=== PATIENT | male | born 1945 | race Caucasian/White ===

== ENCOUNTER 2022-09-18 22:28 | Emergency (ER) | payer MEDICARE ==
[2022-09-18] MEDS ORDERED: Ondansetron PF 4 MG/2 ML Vial ONE (23:11)
[2022-09-18] MEDS ORDERED: Aspirin Chewable 81 MG TAB ONE (23:11)
[2022-09-18] MEDS ORDERED: Nitroglycerin 0.4 MG TAB (25 Tab Bottle) ONE (23:11)
[2022-09-18 23:17] LABS: #Basophils 0.1 thou/uL (0.0-0.2); #Eosinphils 0.2 thou/uL (0.0-0.7); #Lymphocytes 2.1 thou/uL (1.20-3.40); #Monocytes 0.7 thou/uL (0.11-0.59); #Neutrophils 3.8 thou/uL (1.40-6.50); %Basophils 0.8 % (0.0-1.0); %Eosinophils 3.6 % (0.0-10.0); %Lymphocytes 30.1 % (21.0-51.0); %Monocytes 9.6 % (0.0-10.0); %Neutrophils 55.9 % (42.0-75.0); Hemoglobin 14.8 g/dL (14.0-18.0); Mean Corpuscular Hemoglobin 31.9 pg (27.0-31.0); Mean Corpuscular Volume 96.8 fl (78.0-98.0); Mean Platelet Volume 8.5 fL (7.4-10.4); Platelet Count 228 thou/uL (130-400); RBC Distribution Width 11.3 % (11.5-14.5); Red Blood Cell (RBC) Count 4.65 mill/uL (4.70-6.10); White Blood Cell (WBC) Count 6.8 thou/uL (4.8-10.8)
[2022-09-18 23:43] LABS: ALT (SGPT) 34 U/L (8-55); AST (SGOT) 21 U/L (5-34); Albumin 3.9 g/dL (3.4-4.8); Alkaline Phosphatase 85 U/L (40-110); Anion Gap 16 mmol/L (10-20); BUN (Urea Nitrogen) 41 mg/dL (8.4-25.7); Bilirubin, Total 0.5 mg/dL (0.2-1.2); Calc. Creatinine Clearance 0 mL/min (70-130); Carbon Dioxide 22 mmol/L (23-31); Chloride 104 mmol/L (98-107); Estimated GFR 60; Globulin 2.9 g/dL (2.4-3.5); Glucose 91 mg/dL (83-110); Potassium 4.3 mmol/L (3.5-5.1); Protein, Total 6.8 g/dL (5.8-8.1); Sodium 138 mmol/L (136-145)
[2022-09-19 00:04] LABS: CKMB 2.8 ng/mL (0-6.6)
[2022-09-19 00:05] LABS: SARS-CoV-2 NAA Rapid Test Not Detected (NotDetected)
[2022-09-19] MEDS ORDERED: Ondansetron PF 4 MG/2 ML Vial ONE (00:11)
[2022-09-19] MEDS ORDERED: Morphine 2 MG/ML VIAL ONE (00:11)
[2022-09-19] MEDS ORDERED: Sodium Chloride 0.9% 1,000 ML ONE (00:11)
[2022-09-19 00:41] LABS: Prothrombin Time 13.2 sec (12.0-14.7)
[2022-09-19 00:42] LABS: PTT 32.6 sec (22.9-36.1)
== END 2022-09-19 00:52 | disposition short-term general hospital (02) ==
LOC: NAV ERS 22:28
DX: R07.89 Other chest pain (principal); E11.9 Type 2 diabetes mellitus without complications; I10 Essential (primary) hypertension; E78.5 Hyperlipidemia, unspecified; Z20.822 Contact with and (suspected) exposure to COVID-19; Z79.899 Other long term (current) drug therapy
CPT/HCPCS: 71045; 80053; 82553; 83735; 83880; 84484; 85025; 85379; 85610; 85730; 93005; 96374; 96375; 96376; J2270; J2405; J7050; U0002